=== PATIENT | female | born 1965 | race Caucasian/White ===

== ENCOUNTER 2016-10-27 19:29 | Emergency (ER) | payer OTHER, MEDICAID ==
[2016-10-27 19:45] VITALS: BP 146/98; PULSE 77; RESP 20; TEMP 97.5; O2SAT 98
== END 2016-10-27 19:59 | disposition left against medical advice (07) ==
DX: Z53.21 Procedure and treatment not carried out due to patient leaving prior to being seen by health care provider (principal)

== ENCOUNTER 2016-10-30 14:46 | Emergency (ER) | payer OTHER, MEDICAID ==
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
[2016-10-30 14:57] VITALS: BP 158/92; PULSE 71; RESP 12; TEMP 98.1; O2SAT 93
== END 2016-10-30 15:24 | disposition home or self-care (01) ==
LOC: EDUNIT#
DX: S00.01XA Abrasion of scalp, initial encounter (principal); Z79.82 Long term (current) use of aspirin; V28.2XXA Unspecified motorcycle rider injured in noncollision transport accident in nontraffic accident, initial encounter

== ENCOUNTER 2016-12-05 15:33 | Emergency (ER) | payer OTHER, MEDICAID ==
[2016-12-05 15:37] VITALS: RESP 16; TEMP 98.4; O2SAT 96
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
[2016-12-05] MEDS ORDERED: NS 1,000 ML IV ONE (15:53)
[2016-12-05 15:58] LABS: % IMMATURE GRANULYOCYTES 0.3 % (0.0-1.1); ABSOLUTE IMMATURE GRANULOCYTES 0.03 10^3/uL (0.00-0.10); ADD DIFF? NO; ADD MORPH? NO; ADD SCAN? NO; ATYPICAL LYMPHOCYTE FLAG 0 (0-99); FRAGMENT RBC FLAG 0 (0-99); HEMATOCRIT 43.4 % (38.0-47.0); HEMOGLOBIN 14.9 g/dL (12.6-16.3); LEFT SHIFT FLG 0 (0-99); LIPEMIA HEMOLYSIS FLAG 90 (0-99); MEAN CELL HEMOGLOBIN 29.9 pg (27.9-34.1); MEAN CELL HEMOGLOBIN CONCENTR. 34.3 g/dL (32.4-36.7); MEAN CELL VOLUME 87.1 fL (81.5-99.8); MEAN PLATELET VOLUME 9.4 fL (8.7-11.7); PLATELET CLUMPS FLAG 0 (0-99); PLATELET COUNT 274 10^3/uL (150-400); RED BLOOD CELL COUNT 4.98 10^6/uL (4.18-5.33); RED CELL DISTRIBUTION WIDTH 12.3 % (11.5-15.2)
[2016-12-05 16:09] LABS: ALANINE AMINOTRANSFERASE 82 IU/L (9-52); ALBUMIN 4.7 g/dL (3.5-5.0); ALKALINE PHOSPHATASE 123 IU/L (38-126); ANION GAP 10 mEq/L (8-16); ASPARTATE AMINOTRANSFERASE 57 IU/L (14-46); BILIRUBIN,TOTAL 0.4 mg/dL (0.1-1.4); BILIRUBIN-CONJUGATED 0.3 mg/dL (0.0-0.5); BILIRUBIN-UNCONJUGATED 0.1 mg/dL (0.0-1.1); CALCIUM 9.5 mg/dL (8.5-10.4); CARBON DIOXIDE 26 mEq/l (22-31); CHLORIDE 100 mEq/L (97-110); CREATININE 0.6 mg/dL (0.6-1.0); GLOMERULAR FILTRATION RATE > 60; GLUCOSE 149 mg/dL (70-100); POTASSIUM 4.6 mEq/L (3.5-5.2); SODIUM 136 mEq/L (134-144); TOTAL PROTEIN 8.4 g/dL (6.3-8.2)
[2016-12-05] MEDS ORDERED: LIDOCAINE 2% VISCOUS 15 ML UDCUP PO ONE (17:27)
[2016-12-05] MEDS ORDERED: MAG HYDROX/AL HYDROX/SIMETH 30 ML UDCUP PO ONE (17:27)
[2016-12-05] MEDS ORDERED: HYOSCYAMINE SULFATE 0.125 MG TAB PO ONE (17:35)
[2016-12-05 17:51] VITALS: BP 135/85; PULSE 80
== END 2016-12-05 17:49 | disposition home or self-care (01) ==
DX: K29.00 Acute gastritis without bleeding (principal); I10 Essential (primary) hypertension; Z79.82 Long term (current) use of aspirin

== ENCOUNTER 2017-01-08 22:10 | Emergency (ER) | payer OTHER, MEDICAID ==
[2017-01-08 22:46] LABS: COLOR YELLOW; LEUKOCYTE ESTERASE,URINE 1+ (NEGATIVE); NITRITE,URINE NEGATIVE (NEGATIVE)
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
[2017-01-08 23:05] LABS: BACTERIA TRACE /hpf (NONE SEEN); RBC,URINE 50-182 /hpf (0-3)
[2017-01-09 00:43] VITALS: RESP 16
[2017-01-09 00:54] LABS: ANION GAP 11 mEq/L (8-16); CALCIUM 9.6 mg/dL (8.5-10.4); CARBON DIOXIDE 26 mEq/l (22-31); CHLORIDE 101 mEq/L (97-110); CREATININE 0.7 mg/dL (0.6-1.0); GLOMERULAR FILTRATION RATE > 60; GLUCOSE 106 mg/dL (70-100); POTASSIUM 4.2 mEq/L (3.5-5.2); SODIUM 138 mEq/L (134-144)
[2017-01-09] MEDS ORDERED: IOPAMIDOL (ISOVUE-300) 100 ML BTL ONE (01:15)
[2017-01-09] MEDS ORDERED: TAMSULOSIN HCL 0.4 MG CAP PO ONE (02:02)
[2017-01-09] MEDS ORDERED: CEPHALEXIN 500MG PREPACK#4 BTL TAKEHOME ONE (02:37)
[2017-01-09 02:59] VITALS: BP 142/72; PULSE 62; TEMP 97.9; O2SAT 94
== END 2017-01-09 03:00 | disposition home or self-care (01) ==
DX: N20.0 Calculus of kidney (principal); N30.01 Acute cystitis with hematuria; B96.89 Other specified bacterial agents as the cause of diseases classified elsewhere; Z79.82 Long term (current) use of aspirin
CPT/HCPCS: 74177; 96365; 99285; J0696; Q9967; 82947-QW

== ENCOUNTER → 2017-01-13 | Outpatient (CLI) | payer OTHER, MEDICAID | LOC: FIMAGING 16:38 | PROVIDERS: ATTEND Family Medicine | DX: N20.1 Calculus of ureter (principal) ==

== ENCOUNTER 2017-01-27 11:16 | Observation (INO) | payer OTHER, MEDICAID ==
--- NOTE | 2017-01-27 07:26 | GHP ---
[f rep st] PREOP HISTORY AND PHYSICAL Corrected report ADMISSION DIAGNOSIS: Right ureteral calculus. HISTORY OF PRESENT ILLNESS: This is a 51-year-old lady, who has had a right ureteral calculus. Has had hematuria and pain. She has had history of kidney stones in the past, unknown types of treatment or side. Her CAT scan shows a 6 x 4 x 3 mm right proximal ureteral stone, a small 1 mm left lower pole stone, and 2 renal cysts, the largest being 17 mm with Hounsfield units of 6. KUB shows no progression of the stone. She is to be admitted for ureteroscopic removal of the right ureteral stone. She had a serum creatinine on 01/08/2017 of 0.7, and a serum calcium of 9.6. PAST HISTORY: Hypertension, kidney stones, migraines, and seizures. PAST SURGICAL HISTORY: Lithotripsy. MEDICATION HISTORY: Bystolic, carbamazepine, cephalexin, tamsulosin, Verapamil. ALLERGIES: None. FAMILY HISTORY: Positive for kidney stones. SOCIAL HISTORY: Nondrinker. Nonsmoker. Unemployed. . REVIEW OF SYSTEMS: Negative cardiac, respiratory, GI, and endocrine. PHYSICAL EXAM: VITAL SIGNS: In the office, her blood pressure is 112/70. Heart rate 62 and regular. BMI 27.81. O2 saturation on room air was 96%. Vital signs stable. CHEST: Clear. HEART: Regular rate and rhythm. ABDOMEN: Normal. No organomegaly, rebound, or guarding. EXTREMITIES: Lower extremities are normal. LABORATORY DATA: Urinalysis in the office revealed large blood with negative nitrites and leukocyte esterase. IMPRESSION: She has a right proximal ureteral calculus and she is admitted for attempted ureteroscopic removal of the stone. Indication, complications and options have been discussed. Written and verbal consent has been obtained. /[id number]/MODL Add acc#, 01/27/17, cameron WINN
[~2017-01-27 11:16] MED LIST: ACETAMINOPHEN/ASA/CAFFEINE 1 EACH TAB PO PRN; D5W LR 1,000 ML IV ONE; ceFAZolin 2 GM/DEXTROSE 100 ML IV ONE
[2017-01-27] MEDS ORDERED: LIDOCAINE 1% 2 ML INJ ID PRN (11:43)
[2017-01-27] MEDS ORDERED: LR 1,000 ML IV ONE (11:43)
[2017-01-27] MEDS ORDERED: LIDOCAINE 1% 2 ML INJ ONE (11:47)
[2017-01-27] MEDS: carBAMazepine 200 MG TAB PO SCH ×3 (12:30→20:51)
[2017-01-27] MEDS: VERAPAMIL ER 180 MG TAB PO SCH (12:31)
[2017-01-27] MEDS: TAMSULOSIN HCL 0.4 MG CAP PO SCH (12:32)
[2017-01-27] MEDS ORDERED: CEFAZOLIN 2 GM/DEXTROSE/100 ML BAG IV ONE (12:37)
[2017-01-27] MEDS ORDERED: LIDOCAINE 2% JELLY 20 ML (UROJECT) ONE (13:11)
[2017-01-27] MEDS ORDERED: IOPAMIDOL (ISOVUE-M 300) 15 ML VIAL ONE (13:11)
[2017-01-27] MEDS ORDERED: MIDAZOLAM 2 MG/2 ML VIAL ONE ×2 (13:17→13:26)
[2017-01-27] MEDS ORDERED: fentaNYL 100 MCG/2 ML INJ ONE ×4 (13:26→17:55)
[2017-01-27] MEDS ORDERED: PROPOFOL 200 MG/20 ML VIAL ONE (13:27)
--- NOTE | 2017-01-27 13:52 | PDANEPAE ---
ANE History of Present Illness kidney stone ANE Past Medical History - Cardiovascular History Hx Hypertension: Yes Hx Arrhythmias: No Hx Chest Pain: No Hx Coronary Artery / Peripheral Vascular Disease: No Hx CHF / Valvular Disease: No Hx Palpitations: No - Pulmonary History Hx COPD: No Hx Asthma/Reactive Airway Disease: No Hx Recent Upper Respiratory Infection: No Hx Oxygen in Use at Home: No - Neurologic History Hx Cerebrovascular Accident: No Hx Seizures: Yes Hx Dementia: No - Endocrine History Hx Diabetes: No - Renal History Hx Renal Disorders: Yes - Liver History Hx Hepatic Disorders: Yes - Neurological & Psychiatric Hx Hx Neurological and Psychiatric Disorders: No - Cancer History Hx Cancer: No - Congenital Disorder History Hx Congenital Disorders: No - GI History Hx Gastrointestinal Disorders: No - Chronic Pain History Chronic Pain: No ANE Review of Systems - Exercise capacity METS (RN): 4 METS ANE Patient History - Allergies Allergies/Adverse Reactions: ketorolac tromethamine [From Toradol] Allergy (Unknown, Verified 12/05/16 15:35) promethazine HCl [From Phenergan] Allergy (Unknown, Verified 12/05/16 15:35) - Home Medications Home Medications: Acetaminophen/ASA/Caffeine [Excedrin Tablet (*)] 1 tab PO DAILY PRN 01/21/17 [ Last Taken Unknown] Ibuprofen [Motrin (*)] 600 mg PO Q4 PRN 01/21/17 [Last Taken Unknown] Nebivolol HCl [Bystolic 5 mg (*)] 5 mg PO HS 01/21/17 [Last Taken 01/26/17 20:30 ] Tamsulosin HCl [Flomax 0.4 MG (*)] 0.4 mg PO DAILY 01/21/17 [Last Taken 01/19/17 ] Verapamil ER [Calan SR/ER 180MG (*)] 180 mg PO DAILY 01/21/17 [Last Taken 09:30] carBAMazepine [Tegretol] 200 mg PO TID 01/21/17 [Last Taken 01/27/17 08:30] - NPO status NPO Since - Liquids (Date): 01/27/17 NPO Since - Liquids (Time): 09:45 NPO Since - Solids (Date): 01/26/17 NPO Since - Solids (Time): 18:30 - Smoking Hx Smoking Status: Never smoked ANE Labs/Vital Signs - Vital Signs Blood Pressure: 146/88 Heart Rate: 62 Respiratory Rate: 15 O2 Sat (%): 95 Height: 162.56 cm Weight: 72.575 kg
[2017-01-27] MEDS ORDERED: MIDAZOLAM 2 MG/2 ML VIAL IVP ONE (13:56)
[2017-01-27] MEDS ORDERED: ONDANSETRON 4 MG/2 ML VIAL IVP PRN ×2 (14:10→19:39)
[2017-01-27] MEDS ORDERED: NALOXONE HCL 0.4 MG/ML INJ IVP PRN (14:10)
--- NOTE | 2017-01-27 14:10 | POSTANESTH ---
Post Anesthetic Evaluation Cardiovascular Status: Normal, Stable Respiratory Status: Normal, Stable Level of Consciousness/Mental Status: Moderately Sleepy Pain Control: Adequate, Prn Tx Ordered Nausea/Vomiting Control: Adequate, Prn Tx Ordered Complications Possibly Related to Anesthesia: None Noted (Pt has seizure disorder, up to date on Tegretol, next dose 9 pm)
[2017-01-27] MEDS: fentaNYL 100 MCG/2 ML INJ IVP PRN ×6 (14:40→17:57)
--- NOTE | 2017-01-27 14:54 | GOP ---
[f rep st] OPERATIVE REPORT DATE OF OPERATION: 01/27/2017 SURGEON: Jarred Langford MD ANESTHESIA: provided general anesthesia. PREOPERATIVE DIAGNOSIS: Right proximal ureteral calculus with hematuria. POSTOPERATIVE DIAGNOSIS: Right proximal ureteral calculus with hematuria. PROCEDURE PERFORMED: Cystoscopy and retrograde ureteral pyelogram with fluoroscopy. Ureteral dilat or sheath access placed, stone fragmentation, extraction, and then pyeloscopy and placement of urete ral stent under fluoroscopy. FINDINGS: DESCRIPTION OF PROCEDURE: After appropriate timeout and being prepped and draped in normal sterile fashion, the urethra was cannulated, and retrograde ureteral pyelogram was performed noted to the pr oximal ureteral calculus. Guidewire was passed up beyond the stone, and then I was able to dilate t he ureteral orifice and the ureter with the ureteral access sheath; then the flexible scope was pass ed to where I could fragment the stone. It was very soft and fragmented with 40 joules. Then extra cted the larger fragments. Visualized the ureter and the renal pelvis, and there was no stone burde n noted in the renal pelvis, calices, or ureter. Because of inflammation around the site of the sto ne, I elected to place a stent; so a 4.7 multi-link stent was passed under fluoroscopic control. It curled in the renal pelvis and curled in the bladder. Will see her in 1 week to remove the stent i n the office. She will be discharged home to have followup as outlined. /[id number]/MODL
[2017-01-27] MEDS ORDERED: RANITIDINE 50 MG/2 ML VIAL ONE (15:17)
[2017-01-27] MEDS ORDERED: DEXAMETHASONE 4 MG/ML VIAL ONE (15:17)
[2017-01-27] MEDS ORDERED: ONDANSETRON 4 MG/2 ML VIAL ONE (15:17)
[2017-01-27] MEDS ORDERED: LIDOCAINE 2% 100 MG/5 ML SYR ONE (15:17)
[2017-01-27] MEDS ORDERED: OXYCODONE/APAP 5/325 TAB PO PRN ×2 (19:24→19:37)
[2017-01-27 20:40] VITALS: RESP 16
[2017-01-27] MEDS ORDERED: NEBIVOLOL HCL 5 MG TAB PO SCH (21:00)
[2017-01-27] MEDS: IBUPROFEN 600 MG TAB PO PRN (22:23)
[2017-01-28] MEDS: IBUPROFEN 600 MG TAB PO PRN (07:12)
[2017-01-28 08:02] VITALS: BP 104/56; PULSE 61; TEMP 97.9; O2SAT 94
[2017-01-28] MEDS: TAMSULOSIN HCL 0.4 MG CAP PO SCH (08:12)
[2017-01-28] MEDS: carBAMazepine 200 MG TAB PO SCH ×2 (08:12→14:37)
[2017-01-28] MEDS: VERAPAMIL ER 180 MG TAB PO SCH (08:12)
--- NOTE | 2017-01-28 14:36 | GDS ---
[f rep st] DISCHARGE SUMMARY PREOPERATIVE DIAGNOSIS: Right proximal ureteral calculus with hematuria. POSTOPERATIVE DIAGNOSIS: Right proximal ureteral calculus with hematuria. This is a pleasant female who was evaluated in our office for a kidney stone. After discussion of t he options, she elected to have a ureteroscopy done. She underwent cystoscopy with retrograde ureter al pyelogram with fluoroscopy and dilation and stone fragmentation and removal along with placement of a stent. The patient is being discharged home in good condition. She is to follow up in our offi ce in 1 week for stent removal. /[id number]/MODL
== END 2017-01-28 14:44 | disposition home or self-care (01) ==
LOC: F1N 11:16
PROVIDERS: ADMIT Specialist; ATTEND Specialist
PROC: 0TC68ZZ Extirpation of Matter from Right Ureter, Via Natural or Artificial Opening Endoscopic (ICD-10-PCS; principal; 2017-01-27 12:45)
PROC: 0T768DZ Dilation of Right Ureter with Intraluminal Device, Via Natural or Artificial Opening Endoscopic (ICD-10-PCS; principal; 2017-01-27 12:45)
DX: N20.1 Calculus of ureter (principal); I10 Essential (primary) hypertension
CPT/HCPCS: 52352; 76001; C1758; C1769; C1894; C2625; J0690; J1100; J2001; J2250; J2405; J2704; J2780; J3010; Q9967; 82365-90

== ENCOUNTER 2017-09-02 08:47 | Emergency (ER) | payer OTHER, MEDICAID ==
[2017-09-02] MEDS ORDERED: LORazepam 2 MG/ML INJ IVP ONE (09:14)
[2017-09-02] MEDS ORDERED: DEXAMETHASONE 10 MG/ML VIAL IVP ONE (09:14)
[2017-09-02] MEDS ORDERED: METOCLOPRAMIDE 10 MG/2 ML VIAL IVP ONE (09:14)
--- NOTE | 2017-09-02 09:26 | EDPHY ---
H & P Stated Complaint: MIGRAINE STERLING SINCE EARLY AM. BECAME NON-VERBAL IN TRIAGE - Personal History LMP (Females 10-55): Unknown Current Tetanus/Diphtheria Vaccine: Yes Current Tetanus Diphtheria and Acellular Pertussis (TDAP): Yes - Medical/Surgical History Hx Asthma: No Hx Chronic Respiratory Disease: No Hx Diabetes: No Hx Cardiac Disease: No Hx Renal Disease: No Hx Cirrhosis: No Hx Alcoholism: No Hx HIV/AIDS: No Hx Splenectomy or Spleen Trauma: No Other PMH: Migraine, Seizures, HTN, EAR SURGERY AFTER TRAUMA, TINNITUS, hx kidney stones - Social History Smoking Status: Never smoked Time Seen by Provider: 09/02/17 09:09 HPI/ROS: CHIEF COMPLAINT: "Migraine " since 3:00 a.m. HISTORY OF PRESENT ILLNESS: 51-year-old female history of chronic migraine, seizure, awoke with a progressive left-sided headache feels this same as her usual chronic migraine, unrelieved with 600 mg of ibuprofen. Non thunderclap. Not worst headache of life. Positive photophobia. Positive nausea. No vomiting. She was able to drive herself to the emergency department. No gait instability. No slurred speech. No visual disturbance beyond photophobia. No head injury. No neck pain or injury. No head or neck trauma or manipulation. No breakthrough seizures. No fever or chills. No recent illness. Compliant with her seizure medication PRIMARY CARE PROVIDER: [facility] REVIEW OF SYSTEMS: A ten point review of systems was performed and is negative with the exception of the items mentioned in the HPI PAST MEDICAL & SURGICAL HISTORY: Migraine. Seizure. SOCIAL HISTORY:Nonsmoker. PHYSICAL EXAM (Prior to examination, patient consented to physical exam, hands were washed and my usual and customary physical exam procedures followed) 1) GENERAL: Well-developed, well-nourished, alert and oriented. Appears uncomfortable, averse to light and sound. 2) HEAD: Normocephalic, atraumatic 3) HEENT: Pupils equal, round, reactive to light bilaterally. Sclera anicteric. 4) NECK: Full range of motion, no meningeal signs. 5) LUNGS: Clear auscultation bilaterally, no wheezes, no rhonchi, no retractions. 6) HEART: Regular rate and rhythm, no murmur, no heave, no gallop. 7) ABDOMEN: No guarding, no rebound, no focal tenderness, negative McBurney's, negative Shay's, negative Rovsing's, negative peritoneal sign, 8) MUSCULOSKELETAL: Moving all extremities, no focal areas of tenderness, no obvious trauma. No peripheral edema or discoloration. 9) BACK: No CVA tenderness, no midline vertebral tenderness, no fluctuance, no step-off, no obvious trauma, no visual or palpable abnormality. 10) SKIN: No rash, no petechiae. 11) Psychiatric: Patient is oriented X 3, there is no agitation. 12) NEURO: Awake, alert, and oriented to person, place and time. Answers questions appropriately. There were no obvious focal neurologic abnormalities. No cerebellar dysfunction. Cranial nerves 2 through to 12 intact. Upper and lower extremities bilaterally with strength 5 / 5, reflexes 2+. DIFFERENTIAL DIAGNOSIS: In no particular order, including but not limited to subarachnoid hemorrhage, migraine headache, tension headache and infectious causes such as meningitis, pharyngitis and sinusitis. The patient understands that this diagnosis is provisional and can never be 100% accurate. Usual and customary warnings were given concerning the clinical impression and all the patient's questions were answered. The patient was instructed to return to the emergency department should her symptoms worsen or return, or develop any new symptoms, otherwise to followup as directed in discharge instructions. This is a partial list of diagnoses considered. These considerations are based on history, physical exam, past history and reassessment. (Willem Valerio) Constitutional: Initial Vital Signs Temperature (C) 36.8 C 09/02/17 08:53 Heart Rate 17 L 09/02/17 08:53 Respiratory Rate 15 09/02/17 08:53 Blood Pressure 138/88 H 09/02/17 08:53 O2 Sat (%) 98 09/02/17 08:53 O2 Delivery Mode Room Air O2 (L/minute) 2 Allergies/Adverse Reactions: ketorolac tromethamine [From Toradol] Allergy (Unknown, Verified 09/02/17 08:51) promethazine HCl [From Phenergan] Allergy (Unknown, Verified 09/02/17 08:51) Home Medications: Medication Instructions Recorded Acetaminophen/ASA/Caffeine 1 tab PO DAILY PRN 01/21/17 [Excedrin Tablet (*)] Ibuprofen [Motrin (*)] 600 mg PO Q4 PRN 01/21/17 Nebivolol HCl [Bystolic 5 mg (*)] 5 mg PO HS 01/21/17 Tamsulosin HCl [Flomax 0.4 MG (*)] 0.4 mg PO DAILY 01/21/17 Verapamil ER [Calan SR/ER 180MG 180 mg PO DAILY 01/21/17 (*)] carBAMazepine [Tegretol] 200 mg PO TID 01/21/17 Medical Decision Making ED Course/Re-evaluation: 9:25 a.m.: Care of patient under supervision of primary supervising physician Dr Alejandra with whom I discussed case. Old medical records reviewed. Patient has previously received relief with Reglan, Decadron, Ativan which will be administered to her. Will hold on imaging studies at this time she describes the headaches feels exactly usual chronic migraine, nonfocal exam. 10:00 a.m.: Re-evaluation after medication administration. Sleeping. 10:34 a.m.: Re-evaluation, sleeping, easily woken. She appears much more comfortable. She states that she continues to experience a frontal headache but will then repeatedly go back to sleep while IM examining in speaking with her. I think that subarachnoid hemorrhage, intracranial mass, malignancy, less than likely in this patient at this time. I do not think that the benefits of CT imaging, lumbar puncture, outweigh the risks in this patient. Plan will be discharge home she is more awake. 1:00 P.M.: Patient has significant more awake at this time, observed ambulating with stable steady gait, clear speech pattern. (Willem Valerio) Other Provider: PHYSICIAN DOCUMENTATION: The patient was evaluated and managed by the Physician [employer]. My co- signature indicates that I have reviewed this chart and I agree with the findings and plan of care as documented. I am the secondary supervising physician. (Poncho Alejandra) - Data Points Medications Given: Discontinued Medications Dexamethasone (Decadron Injection) 10 mg IVP EDNOW ONE Stop: 09/02/17 09:15 Last Admin: 09/02/17 09:28 Dose: 10 mg Lorazepam (Ativan Injection) 1 mg IVP EDNOW ONE Stop: 09/02/17 09:15 Last Admin: 09/02/17 09:27 Dose: 1 mg Metoclopramide HCl (Reglan Injection) 10 mg IVP EDNOW ONE Stop: 09/02/17 09:15 Last Admin: 09/02/17 09:28 Dose: 10 mg Departure - Departure Disposition: Home, Routine, Self-Care Clinical Impression: Headache Qualifiers: Headache type: other headache syndrome Qualified Code(s): G44.89 - Other headache syndrome Condition: Good Instructions: Migraine Headache (ED) Additional Instructions: THANK YOU FOR YOUR VISIT TO OUR EMERGENCY DEPARTMENT (ED). YOU WERE SEEN TODAY BECAUSE OF A HEADACHE. YOU MAY HAVE HAD LAB TESTS, A CT SCAN, MRI OR EVEN A LUMBAR PUNCTURE (COMMONLY REFERRED TO A SPINAL TAP). WE CANNOT ALWAYS FIND THE EXACT CAUSE OF YOUR SYMPTOMS DURING YOUR VISIT TO THE ED. RETURN TO THE ED IMMEDIATELY IF YOUR HEADACHE WORSENS, IF YOU DEVELOP A FEVER, NECK PAIN OR NECK STIFFNESS, OR IF YOU BECOME CONFUSED OR ABNORMALLY DROWSY. Referrals: [facility] [Other] - 09/05/17
[2017-09-02 10:39] VITALS: RESP 16
[2017-09-02 13:11] VITALS: BP 132/76; PULSE 85; TEMP 98.6; O2SAT 93
== END 2017-09-02 13:11 | disposition home or self-care (01) ==
DX: G44.89 Other headache syndrome (principal); I10 Essential (primary) hypertension
CPT/HCPCS: 96374; 96375; 99284; J1100; J2060; J2765

== ENCOUNTER 2018-01-03 06:27 | Emergency (ER) | payer OTHER, MEDICAID ==
[2018-01-03] MEDS ORDERED: NS 1,000 ML IV ONE (07:16)
[2018-01-03] MEDS ORDERED: fentaNYL 100 MCG/2 ML INJ IVP ONE (07:16)
--- NOTE | 2018-01-03 07:16 | EDPHY ---
HPI/HX/ROS/PE/MDM Narrative: CHIEF COMPLAINT: Left flank pain, frequent urination HISTORY OF PRESENT ILLNESS: The patient is a 52 y/o female with a history of kidney stent for a large kidney stone complaining of 2 days of left flank pain and frequent urination. A few days ago she developed intermittent, sharp pain in her left flank, over her kidney. She has associated, milder pain in her right flank. Yesterday, she began experiencing frequent urination, with each episode producing only a small amount of urine. She denies pain with urination or hematuria. This morning, she describes experiencing an uncomfortable pressure in the lower abdomen. She has associated fatigue for the past few days. She denies fever, nausea, vomiting, shortness of breath, or any other associated symptoms. She took 600 mg of ibuprofen a few days ago for a migraine. No fever, chills, chest pain, shortness of breath, palpitations, lightheadedness. REVIEW OF SYSTEMS: Aside from elements discussed in the HPI, a comprehensive 10-point review of systems was reviewed and is negative. PAST MEDICAL HISTORY: Kidney stone with stent, seizures, migraines SOCIAL HISTORY: Lives in [place], daughter is a professor in [employer], [facility] VITAL SIGNS: Reviewed by me GENERAL: Well-developed, well-nourished, resting comfortably in no respiratory distress. HEENT: Atraumatic. Eyes: No icterus, no injection. Mouth: moist mucous membranes. No erythema or lesions. Neck: supple with no adenopathy. LUNGS: Clear to auscultation bilaterally, no wheezes, rhonchi or rales. CARDIAC: Regular rate and rhythm, no rubs, murmurs or gallops. ABDOMEN: Discomfort to palpation of suprapubic abdomen. Soft, nondistended, bowel sounds normal. BACK: Tenderness in the lower left back. No CVA tenderness. EXTREMITIES: No trauma. No edema. Range of motion is normal throughout. NEURO: Alert and oriented, grossly nonfocal. SKIN: Warm and dry, no rash. PSYCHIATRIC: Normal mentation, no agitation. ED Course: The patient presents with lower back pain and frequent urination for the past two days. She has some discomfort to palpation of the lower abdomen. Her urine is normal. Plan for CBC, basic metabolic panel, and urine microscopy to further investigate etiology of symptoms, 50mcg fentanyl and 1L NS fluid for pain management. 8:00AM- Labs largely unremarkable and does not reveal an etiology of symptoms. She has a history of kidney stones requiring stents. Offered patient CT scan to further investigate potential stone without hematuria. Patient resting comfortably. She would prefer to push fluids, and monitor for additional symptoms such as fever, vomiting, worsening pain, blood in urine, dysuria, etc. MDM: Differential diagnosis of the patient's flank pain was considered including but not limited to musculoskeletal causes, kidney stone, pyelonephritis, shingles, and intra-abdominal causes such as diverticulitis. - Data Points Laboratory Results: Laboratory Results 01/03/18 07:32 01/03/18 07:32 Medications Given: Discontinued Medications Fentanyl (Sublimaze) 50 mcg IVP EDNOW ONE Stop: 01/03/18 07:17 Last Admin: 01/03/18 07:29 Dose: 50 mcg Sodium Chloride (Ns) 1,000 mls @ 0 mls/hr IV ONCE ONE; Wide Open PRN Reason: Protocol Stop: 01/03/18 07:17 Last Admin: 01/03/18 07:29 Dose: 1,000 mls General Time Seen by Provider: 01/03/18 07:03 Initial Vital Signs: Initial Vital Signs Temperature (C) 36.5 C 01/03/18 06:32 Heart Rate 69 01/03/18 06:32 Respiratory Rate 20 01/03/18 06:32 Blood Pressure 121/72 H 01/03/18 06:32 O2 Sat (%) 95 01/03/18 06:32 O2 Delivery Mode Room Air Allergies/Adverse Reactions: ketorolac tromethamine [From Toradol] Allergy (Unknown, Verified 09/02/17 08:51) promethazine HCl [From Phenergan] Allergy (Unknown, Verified 09/02/17 08:51) Home Medications: Medication Instructions Recorded Acetaminophen/ASA/Caffeine 1 tab PO DAILY PRN 01/21/17 [Excedrin Tablet (*)] Ibuprofen [Motrin (*)] 600 mg PO Q4 PRN 01/21/17 Nebivolol HCl [Bystolic 5 mg (*)] 5 mg PO HS 01/21/17 Tamsulosin HCl [Flomax 0.4 MG (*)] 0.4 mg PO DAILY 01/21/17 Verapamil ER [Calan SR/ER 180MG 180 mg PO DAILY 01/21/17 (*)] carBAMazepine [Tegretol] 200 mg PO TID 01/21/17 Departure - Departure Disposition: Home, Routine, Self-Care Clinical Impression: Back pain, Urinary frequency Condition: Good Instructions: Dysuria (ED), Back Pain (ED) Additional Instructions: 1. Drink plenty of fluids. Take 400 mg ibuprofen every 6 to 8 hours with food as needed for pain. 2. Seek care urgently for fever, blood in your urine, or any other worsening of condition. Referrals: [facility],. [Clinic] - As per Instructions Report Scribed for: Marti Hernandez Report Scribed by: Zahraa Olivia Date of Report: 01/03/18 Time of Report: 08:06 Physician Review and Approval Statement: Portions of this note were transcribed by a medical center representative. I personally performed a history, physical exam, medical decision making, and confirmed accuracy of information the transcribed note.
[2018-01-03 07:41] LABS: PLATELET COUNT 235 10^3/uL (150-400)
[2018-01-03 09:14] VITALS: BP 151/81
== END 2018-01-03 09:13 | disposition home or self-care (01) ==
DX: R10.9 Unspecified abdominal pain (principal); M54.5 Low back pain; R35.0 Frequency of micturition; E86.9 Volume depletion, unspecified
CPT/HCPCS: 96361; 96374; 99284; J3010

== ENCOUNTER 2018-03-04 19:27 | Emergency (ER) | payer OTHER, MEDICAID ==
[2018-03-04] MEDS ORDERED: HYDROCOD/APAP 5/325 PREPACK#6 BTL TAKEHOME ONE (20:08)
--- NOTE | 2018-03-04 20:08 | EDPHY ---
H & P Time Seen by Provider: 03/04/18 19:40 HPI/ROS: CHIEF COMPLAINT: Headache HISTORY OF PRESENT ILLNESS: The patient is a 52-year-old female with a history of seizure disorder and migraine headaches who presents emergency department with a headache. Patient states that she has been under stress because of an incident that happened with her daughter in [place]. Since that time she has had a right frontal headache and a posterior headache. This is in her upper neck. This is been intermittent for the past month. She has seen a massage therapist for this. Patient denies any focal weakness or numbness. No visual change. No nausea or vomiting. No recent trauma or fall. Patient reports that she had an MRI last month for tinnitus. This was unremarkable. REVIEW OF SYSTEMS: My complete review of systems is negative except as mentioned in the HPI. Past Medical/Surgical History: Includes migraine, seizure, hypertension, tenderness, kidney stone Smoking Status: Never smoked Physical Exam: Vitals noted GENERAL: Well-appearing, in no acute distress, alert. HEENT: Eyes normal to inspection, normal pharynx, no signs of dehydration. No ptosis. NECK: No thyromegaly, no lymphadenopathy, supple. RESPIRATORY: Clear to auscultation bilaterally, no rales, rhonchi or wheezing. CVS: Regular rate and rhythm, no rubs, murmurs, or gallops. ABDOMEN: Soft, nontender, nondistended, no organomegaly. BACK: Normal to inspection, no CVA tenderness. SKIN: Normal color, no rash, warm, dry. No pallor. EXTREMITIES: No pedal edema, no calf tenderness, no Homans sign or cords, no joint swelling. NEURO/PSYCH: Higher functions: Alert and Oriented x3. Normal speech and cognition. Normal mood and affect. Cranial nerves: Normal as tested. Cerebellar: Normal as tested. Good finger to nose, good [id number], normal gait. Peripheral exam: Normal motor exam. Normal sensation. Normal reflexes. Constitutional: Initial Vital Signs Temperature (C) 36.7 C 03/04/18 19:31 Heart Rate 66 03/04/18 19:31 Respiratory Rate 20 03/04/18 19:31 Blood Pressure 137/82 H 03/04/18 19:31 O2 Sat (%) 96 03/04/18 19:31 O2 Delivery Mode Room Air Allergies/Adverse Reactions: ketorolac tromethamine [From Toradol] Allergy (Unknown, Verified 09/02/17 08:51) promethazine HCl [From Phenergan] Allergy (Unknown, Verified 09/02/17 08:51) Home Medications: Medication Instructions Recorded Acetaminophen/ASA/Caffeine 1 tab PO DAILY PRN 01/21/17 [Excedrin Tablet (*)] Ibuprofen [Motrin (*)] 600 mg PO Q4 PRN 01/21/17 Nebivolol HCl [Bystolic 5 mg (*)] 5 mg PO HS 01/21/17 Tamsulosin HCl [Flomax 0.4 MG (*)] 0.4 mg PO DAILY 01/21/17 Verapamil ER [Calan SR/ER 180MG 180 mg PO DAILY 01/21/17 (*)] carBAMazepine [Tegretol] 200 mg PO TID 01/21/17 Hydrocodone/APAP 5/325 [Filley 1 - 2 tab PO Q4 #7 tab 03/04/18 5/325 (RX)] Medical Decision Making ED Course/Re-evaluation: In the emergency department I discussed possible etiologies with the patient. I answered all her questions. I recommended CT imaging. The patient did not want this test performed. I discussed the pros and cons. I discussed treatment and diagnostic options. Patient would prefer to be treated with medication. She will follow up with Neurology. She was given Filley prepack for her intermittent pain. She will return with worsening symptoms. Differential Diagnosis: My differential includes but is not limited to subarachnoid hemorrhage, subdural hematoma, epidural hematoma, ischemic CVA, hemorrhagic CVA, dissection , aneurysm I do not feel the patient needs MRI imaging at this time. She refused CT imaging. Departure - Departure Disposition: Home, Routine, Self-Care Clinical Impression: Headache Qualifiers: Headache type: unspecified Headache chronicity pattern: episodic headache Intractability: not intractable Qualified Code(s): R51 - Headache Condition: Good Instructions: Acute Headache (ED) Additional Instructions: Return with increasing pain, weakness, numbness, fever or any other concerns. Referrals: Yury Méndez DO [Doctor of Osteopathy] - 2-3 days without fail
[2018-03-04 20:35] VITALS: BP 118/81
== END 2018-03-04 20:33 | disposition home or self-care (01) ==
DX: R51 Headache (principal); I10 Essential (primary) hypertension

== ENCOUNTER 2018-05-05 12:02 | Emergency (ER) | payer OTHER, MEDICAID ==
[2018-05-05 13:32] VITALS: BP 131/72
--- NOTE | 2018-05-05 13:37 | EDPHY ---
H & P Time Seen by Provider: 05/05/18 13:11 HPI/ROS: CHIEF COMPLAINT: High blood pressure HISTORY OF PRESENT ILLNESS: The patient is a 52-year-old female presents emergency department with elevated blood pressure. Patient states she has a history of high blood pressure and she takes both Bystolic and verapamil. The patient has been upset about her daughter who lives in [place]. This is been causing her anxiety for the past 3 days. She has noticed elevated pressures up to 180/100. At this time the patient states she has no complaints. She is not feeling anxious. She has no chest pain or shortness of breath. Patient did take extra doses of Bystolic yesterday. REVIEW OF SYSTEMS: 10 systems were reveiwed and are negative with the exception of the elements mentioned in the history of present illness. Past Medical/Surgical History: Includes migraine, seizure, hypertension, tenderness, kidney stone, anxiety Smoking Status: Never smoked Physical Exam: 36.8, 134/87, 72, 16, 97% on room air GENERAL: Well-appearing, in no acute distress, alert. HEENT: Slight dysconjugate gaze. The patient states this is baseline. Normal pharynx, no signs of dehydration. NECK: Normal, supple. RESPIRATORY: Clear to auscultation bilaterally, no rales, rhonchi or wheezing. CVS: Regular rate and rhythm, no rubs, murmurs, or gallops. ABDOMEN: Soft, nontender, nondistended, no organomegaly. BACK: Normal to inspection, no CVA tenderness. SKIN: Normal color, no rash, warm, dry. No pallor. EXTREMITIES: No pedal edema, no calf tenderness, no Homans sign or cords, no joint swelling. NEURO/PSYCH: Alert and oriented, normal mood and affect, normal motor sensory exam. No obvious cranial nerve deficit. Constitutional: Initial Vital Signs Temperature (C) 36.8 C 05/05/18 12:07 Heart Rate 72 05/05/18 12:07 Respiratory Rate 16 05/05/18 12:07 Blood Pressure 134/87 H 05/05/18 12:07 O2 Sat (%) 97 05/05/18 12:07 O2 Delivery Mode Room Air Allergies/Adverse Reactions: ketorolac tromethamine [From Toradol] Allergy (Unknown, Verified 09/02/17 08:51) promethazine HCl [From Phenergan] Allergy (Unknown, Verified 09/02/17 08:51) Home Medications: Medication Instructions Recorded Ibuprofen [Motrin (*)] 600 mg PO Q4 PRN 01/21/17 Nebivolol HCl [Bystolic 5 mg (*)] 5 mg PO HS 01/21/17 Tamsulosin HCl [Flomax 0.4 MG (*)] 0.4 mg PO DAILY 01/21/17 Verapamil ER [Calan SR/ER 180MG 180 mg PO DAILY 01/21/17 (*)] carBAMazepine [Tegretol] 200 mg PO TID 01/21/17 Medical Decision Making ED Course/Re-evaluation: In the emergency department I discussed possible etiologies with the patient. I answered all her questions. She requested that she have her blood pressure recheck. 131/72 I discussed the results with the patient. At this time I do not feel she needs to have her medications change. She will follow up with her primary care physician at the [facility]. She was given warnings prior to leaving. She will return with worsening symptoms. Differential Diagnosis: I doubt acute MO, ACS, dysrhythmia, hypertensive urgency, hypertensive emergency. Patient does have a history of anxiety. Departure - Departure Disposition: Home, Routine, Self-Care Clinical Impression: Hypertension Qualifiers: Hypertension type: unspecified Qualified Code(s): I10 - Essential (primary) hypertension Condition: Good Instructions: Hypertension (ED) Additional Instructions: Return with increasing headache, chest pain, shortness of breath or any other concerns. Your blood pressure here was 134/87 with a repeat blood pressure of 131/72. Referrals: Latonia Barrera MD [Primary Care Provider] - 2-3 days without fail
== END 2018-05-05 13:58 | disposition home or self-care (01) ==
DX: I10 Essential (primary) hypertension (principal)

== ENCOUNTER 2018-06-23 11:40 | Emergency (ER) | payer OTHER, MEDICAID ==
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
[2018-06-23] MEDS ORDERED: METOCLOPRAMIDE 10 MG/2 ML VIAL IVP ONE (11:58)
[2018-06-23 12:08] LABS: PLATELET COUNT 316 10^3/uL (150-400)
[2018-06-23 13:33] VITALS: BP 138/86
== END 2018-06-23 13:31 | disposition home or self-care (01) ==
LOC: EDBD → EDUNIT#
DX: G43.909 Migraine, unspecified, not intractable, without status migrainosus (principal); V47.5XXA Car driver injured in collision with fixed or stationary object in traffic accident, initial encounter; Y92.410 Unspecified street and highway as the place of occurrence of the external cause; Y93.9 Activity, unspecified; Y99.9 Unspecified external cause status
CPT/HCPCS: 96374; G0480; J1200; J2765

== ENCOUNTER 2018-09-08 11:27 | Emergency (ER) | payer OTHER, MEDICAID ==
[2018-09-08 11:35] VITALS: BP 135/70
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
== END 2018-09-08 12:25 | disposition home or self-care (01) ==
DX: H92.01 Otalgia, right ear (principal)